=== PATIENT | female | born 2000 ===

== ENCOUNTER 2020-09-03 13:16 | Emergency (ER) | payer OTHER ==
[2020-09-03] MEDS ORDERED: Sodium Chloride 0.9% 10 ML Syringe FLUSH PRN (13:57)
[2020-09-03] MEDS ORDERED: LORazepam 2 MG/ML SDV IVPUSH ONE ×6 (13:58→18:55)
[2020-09-03] MEDS ORDERED: Sodium Chloride 0.9% 1,000 ML IV SCH (14:00)
[2020-09-03] MEDS ORDERED: Lactated Ringers 1,000 ML IV SCH (15:45)
[2020-09-03] MEDS ORDERED: Potassium Chloride 10 MEQ in Premix Bag 1 BAG IV ONE (15:52)
--- NOTE | 2020-09-03 15:57 | EDM.PDOC ---
ED HPI GENERAL MEDICAL PROBLEM - General Chief Complaint: General Stated Complaint: ALTERED STATUS Time Seen by Provider: 09/03/20 13:42 Source of Information: Reports: Patient, Family (), RN Notes Reviewed - History of Present Illness INITIAL COMMENTS - FREE TEXT/NARRATIVE: 19 yr old female brought here to the ED by her clinic provider for evaluation of altered mental status, balance difficulty and apparent hallucinations. Pt unable to state when these symptoms started. Her clinic provider states she was just prescribed phentermine about a week ago, wondering if this could be medication effect or possible seratonin syndrome. On arrival pt found to be tachycardic with a heart rate of 180 on arrival to ED. Denied chest pain, awareness of palpitations, dyspnea, abd pain, nausea or vom iting. Hx of depression on effexor 150 mg q hs. - Related Data Allergies Allergy/AdvReac Type Severity Reaction Status Date / Time phentermine Allergy Hallucinati Verified 09/03/20 17:42 ons Home Meds: Home Meds Phentermine HCl 15 mg PO DAILY 09/03/20 [History] Venlafaxine [Effexor XR] 150 mg PO BEDTIME 09/03/20 [History] Social & Family History - Tobacco Use Tobacco Use Status *Q: Never Tobacco User Second Hand Smoke Exposure: No - Caffeine Use Caffeine Use: Reports: Coffee, Soda - Recreational Drug Use Recreational Drug Use: No ED ROS GENERAL - Review of Systems Review Of Systems: See Below Constitutional: Denies: Fever, Chills, Diaphoresis HEENT: Denies: Throat Pain Respiratory: Denies: Shortness of Breath Cardiovascular: Denies: Chest Pain, Palpitations GI/Abdominal: Denies: Abdominal Pain, Nausea, Vomiting Musculoskeletal: Reports: Back Pain Skin: Denies: Rash Neurological: Reports: Confusion. Denies: Trouble Speaking Psychiatric: Reports: Confusion, Hallucinations ED EXAM, GENERAL - Physical Exam Exam: See Below General Appearance: Alert, Anxious, Moderate Distress Eye Exam: Bilateral Eye: PERRL (pupils mid size, equal, reactive) Nose: Normal Inspection Throat/Mouth: Normal Inspection, Normal Oropharynx Head: Atraumatic Neck: Supple. No: Lymphadenopathy (L), Lymphadenopathy (R) Respiratory/Chest: No Respiratory Distress, Lungs Clear, Normal Breath Sounds Cardiovascular: Tachycardia GI/Abdominal: Soft, Non-Tender Back Exam: No: CVA Tenderness (L), CVA Tenderness (R) Extremities: Normal Inspection. No: Pedal Edema, Leg Pain Neurological: Alert, No Motor/Sensory Deficits, Other (Knows it is August, thinks it is , knows her daughter's birthday) Skin Exam: Warm, Dry, Normal Color, No Rash #1 Interpretation EKG Date: 09/03/20 Rhythm: Other (Sinus tachycardia,) Fosters: LAD-Left Fosters Deviation P-Wave: Present QRS: Other (Mild IVCD) ST-T: Normal Course - Vital Signs Last Recorded V/S: Last Vital Signs Temp 98.6 F 09/03/20 18:51 Pulse 136 H 09/03/20 18:51 Resp 24 H 09/03/20 18:51 BP 143/95 H 09/03/20 18:51 Pulse Ox 98 09/03/20 18:51 - Orders/Labs/Meds Orders: Active Orders 24 hr Category Date Time Status Head wo Cont [CT] Stat Exams 09/03/20 16:28 Taken Peripheral IV Insertion Adult [OM.PC] Stat Oth 09/03/20 13:57 Ordered Labs: Laboratory Tests 09/03/20 09/03/20 09/03/20 Range/Units 13:39 13:40 13:40 WBC 9.39 (3.98-10.04) K/mm3 RBC 4.72 (3.98-5.22) M/mm3 Hgb 13.8 (11.2-15.7) gm/dl Hct 42.1 (34.1-44.9) % MCV 89.2 (79.4-94.8) fl MCH 29.2 (25.6-32.2) pg MCHC 32.8 (32.2-35.5) g/dl RDW Std Deviation 44.7 (36.4-46.3) fL Plt Count 324 D (182-369) K/mm3 MPV 8.9 L (9.4-12.3) fl Neut % (Auto) 34.8 (34.0-71.1) % Lymph % (Auto) 56.1 H (19.3-51.7) % [place] % (Auto) 7.5 (4.7-12.5) % Eos % (Auto) 1.0 (0.7-5.8) Baso % (Auto) 0.4 (0.1-1.2) % Neut # (Auto) 3.27 (1.56-6.13) K/mm3 Lymph # (Auto) 5.27 H (1.18-3.74) K/mm3 [place] # (Auto) 0.70 H (0.24-0.36) K/mm3 Eos # (Auto) 0.09 (0.04-0.36) K/mm3 Baso # (Auto) 0.04 (0.01-0.08) K/mm3 Sodium (136-145) mEq/L Potassium (3.5-5.1) mEq/L Chloride (98-107) mEq/L Carbon Dioxide (21-32) mEq/L Anion Gap (5-15) BUN (7-18) mg/dL Creatinine (0.55-1.02) mg/dL Est Cr Clr Drug Dosing mL/min Estimated GFR (MDRD) (>60) mL/min BUN/Creatinine Ratio (14-18) Glucose (70-99) mg/dL POC Glucose 72 (70-99) mg/dL Calcium (8.5-10.1) mg/dL Total Bilirubin (0.2-1.0) mg/dL AST (15-37) U/L ALT (14-59) U/L Alkaline Phosphatase (46-116) U/L Troponin I (0.00-0.056) ng/mL C-Reactive Protein 2.1 H* (<1.0) mg/dL Total Protein (6.4-8.2) g/dl Albumin (3.4-5.0) g/dl Globulin gm/dL Albumin/Globulin Ratio (1-2) TSH 3rd Generation (0.358-3.74) uIU/mL Urine Color (Yellow) Urine Appearance (Clear) Urine pH (5.0-8.0) Ur Specific [place] (1.005-1.030) Urine Protein (Negative) Urine Glucose (UA) (Negative) Urine Ketones (Negative) Urine Occult Blood (Negative) Urine Nitrite (Negative) Urine Bilirubin (Negative) Urine Urobilinogen (0.2-1.0) Ur Leukocyte Esterase (Negative) Urine RBC (0-5) /hpf Urine WBC (0-5) /hpf Ur Squamous Epith Cells (0-5) /hpf Amorphous Sediment (NOT SEEN) /hpf Urine Bacteria (FEW) /hpf Urine Mucus (FEW) /hpf Urine HCG, Qual (NEGATIVE) Urine Opiates Screen (UTJVTN=621) Ur Buprenorphine Scrn (CUTOFF=10) Ur Oxycodone Screen (WFW8CR=920) Urine Methadone Screen (HVGFFS=500) Ur Propoxyphene Screen (CQRPEI=927) Acetaminophen (10-30) ug/mL Ur Barbiturates Screen (ZGSKJF=297) Ur Tricyclics Screen (UASKCM=969) Ur Phencyclidine Scrn (CUTOFF=25) Ur Amphetamine Screen (OGHKDX=834) U Methamphetamines Scrn (PASCES=394) U Benzodiazepines Scrn (UCIMZN=321) U Cocaine Metab Screen (LGNPWQ=949) U Marijuana (THC) Screen (CUTOFF=50) Ethyl Alcohol (0.00) gm% SARS-CoV-2 RNA (JENNIFER) (NEGATIVE) 09/03/20 09/03/20 09/03/20 Range/Units 13:40 13:40 14:45 WBC (3.98-10.04) K/mm3 RBC (3.98-5.22) M/mm3 Hgb (11.2-15.7) gm/dl Hct (34.1-44.9) % MCV (79.4-94.8) fl MCH (25.6-32.2) pg MCHC (32.2-35.5) g/dl RDW Std Deviation (36.4-46.3) fL Plt Count (182-369) K/mm3 MPV (9.4-12.3) fl Neut % (Auto) (34.0-71.1) % Lymph % (Auto) (19.3-51.7) % [place] % (Auto) (4.7-12.5) % Eos % (Auto) (0.7-5.8) Baso % (Auto) (0.1-1.2) % Neut # (Auto) (1.56-6.13) K/mm3 Lymph # (Auto) (1.18-3.74) K/mm3 [place] # (Auto) (0.24-0.36) K/mm3 Eos # (Auto) (0.04-0.36) K/mm3 Baso # (Auto) (0.01-0.08) K/mm3 Sodium 140 (136-145) mEq/L Potassium 2.9 L (3.5-5.1) mEq/L Chloride 101 (98-107) mEq/L Carbon Dioxide 23 (21-32) mEq/L Anion Gap 18.9 H (5-15) BUN 13 (7-18) mg/dL Creatinine 0.9 (0.55-1.02) mg/dL Est Cr Clr Drug Dosing 71.02 mL/min Estimated GFR (MDRD) > 60 (>60) mL/min BUN/Creatinine Ratio 14.4 (14-18) Glucose 78 (70-99) mg/dL POC Glucose (70-99) mg/dL Calcium 9.8 (8.5-10.1) mg/dL Total Bilirubin 0.2 (0.2-1.0) mg/dL AST 24 (15-37) U/L ALT 32 (14-59) U/L Alkaline Phosphatase 93 (46-116) U/L Troponin I < 0.017 (0.00-0.056) ng/mL C-Reactive Protein (<1.0) mg/dL Total Protein 8.8 H (6.4-8.2) g/dl Albumin 4.4 (3.4-5.0) g/dl Globulin 4.4 gm/dL Albumin/Globulin Ratio 1.0 (1-2) TSH 3rd Generation 4.870 H (0.358-3.74) uIU/mL Urine Color (Yellow) Urine Appearance (Clear) Urine pH (5.0-8.0) Ur Specific [place] (1.005-1.030) Urine Protein (Negative) Urine Glucose (UA) (Negative) Urine Ketones (Negative) Urine Occult Blood (Negative) Urine Nitrite (Negative) Urine Bilirubin (Negative) Urine Urobilinogen (0.2-1.0) Ur Leukocyte Esterase (Negative) Urine RBC (0-5) /hpf Urine WBC (0-5) /hpf Ur Squamous Epith Cells (0-5) /hpf Amorphous Sediment (NOT SEEN) /hpf Urine Bacteria (FEW) /hpf Urine Mucus (FEW) /hpf Urine HCG, Qual (NEGATIVE) Urine Opiates Screen Negative (JGBDYN=611) Ur Buprenorphine Scrn Negative (CUTOFF=10) Ur Oxycodone Screen Negative (GID4BD=706) Urine Methadone Screen Negative (ACXQAI=418) Ur Propoxyphene Screen Negative (EPEMMW=007) Acetaminophen 0 L (10-30) ug/mL Ur Barbiturates Screen Negative (TDDUVO=907) Ur Tricyclics Screen Negative (VJPQLB=883) Ur Phencyclidine Scrn Negative (CUTOFF=25) Ur Amphetamine Screen Presumptive positive H (QHBWDV=799) U Methamphetamines Scrn Negative (GXGIIY=830) U Benzodiazepines Scrn Negative (FYCZCD=161) U Cocaine Metab Screen Negative (XOLKOI=313) U Marijuana (THC) Screen Negative (CUTOFF=50) Ethyl Alcohol 0.00 (0.00) gm% SARS-CoV-2 RNA (JENNIFER) (NEGATIVE) 09/03/20 09/03/20 09/03/20 Range/Units 14:45 15:30 16:15 WBC (3.98-10.04) K/mm3 RBC (3.98-5.22) M/mm3 Hgb (11.2-15.7) gm/dl Hct (34.1-44.9) % MCV (79.4-94.8) fl MCH (25.6-32.2) pg MCHC (32.2-35.5) g/dl RDW Std Deviation (36.4-46.3) fL Plt Count (182-369) K/mm3 MPV (9.4-12.3) fl Neut % (Auto) (34.0-71.1) % Lymph % (Auto) (19.3-51.7) % [place] % (Auto) (4.7-12.5) % Eos % (Auto) (0.7-5.8) Baso % (Auto) (0.1-1.2) % Neut # (Auto) (1.56-6.13) K/mm3 Lymph # (Auto) (1.18-3.74) K/mm3 [place] # (Auto) (0.24-0.36) K/mm3 Eos # (Auto) (0.04-0.36) K/mm3 Baso # (Auto) (0.01-0.08) K/mm3 Sodium (136-145) mEq/L Potassium (3.5-5.1) mEq/L Chloride (98-107) mEq/L Carbon Dioxide (21-32) mEq/L Anion Gap (5-15) BUN (7-18) mg/dL Creatinine (0.55-1.02) mg/dL Est Cr Clr Drug Dosing mL/min Estimated GFR (MDRD) (>60) mL/min BUN/Creatinine Ratio (14-18) Glucose (70-99) mg/dL POC Glucose (70-99) mg/dL Calcium (8.5-10.1) mg/dL Total Bilirubin (0.2-1.0) mg/dL AST (15-37) U/L ALT (14-59) U/L Alkaline Phosphatase (46-116) U/L Troponin I (0.00-0.056) ng/mL C-Reactive Protein (<1.0) mg/dL Total Protein (6.4-8.2) g/dl Albumin (3.4-5.0) g/dl Globulin gm/dL Albumin/Globulin Ratio (1-2) TSH 3rd Generation (0.358-3.74) uIU/mL Urine Color Yellow (Yellow) Urine Appearance Clear (Clear) Urine pH 6.5 (5.0-8.0) Ur Specific [place] 1.025 (1.005-1.030) Urine Protein 1+ H (Negative) Urine Glucose (UA) Negative (Negative) Urine Ketones Negative (Negative) Urine Occult Blood Trace-intact H (Negative) Urine Nitrite Negative (Negative) Urine Bilirubin Negative (Negative) Urine Urobilinogen 0.2 (0.2-1.0) Ur Leukocyte Esterase Negative (Negative) Urine RBC 0-5 (0-5) /hpf Urine WBC 0-5 (0-5) /hpf Ur Squamous Epith Cells 0-5 (0-5) /hpf Amorphous Sediment Few H (NOT SEEN) /hpf Urine Bacteria Few (FEW) /hpf Urine Mucus Moderate H (FEW) /hpf Urine HCG, Qual Negative (NEGATIVE) Urine Opiates Screen (VFDBJT=810) Ur Buprenorphine Scrn (CUTOFF=10) Ur Oxycodone Screen (HKJ9HM=466) Urine Methadone Screen (JHNLZB=884) Ur Propoxyphene Screen (PKISKZ=771) Acetaminophen (10-30) ug/mL Ur Barbiturates Screen (UYHSNH=791) Ur Tricyclics Screen (XPFPKV=092) Ur Phencyclidine Scrn (CUTOFF=25) Ur Amphetamine Screen (IZCOQS=821) U Methamphetamines Scrn (JGUZGV=796) U Benzodiazepines Scrn (VONLOF=627) U Cocaine Metab Screen (QFUJVZ=563) U Marijuana (THC) Screen (CUTOFF=50) Ethyl Alcohol (0.00) gm% SARS-CoV-2 RNA (JENNIFER) Negative (NEGATIVE) Meds: Medications Discontinued Medications Generic Name Dose Route Start Last Admin Trade Name Freq PRN Reason Stop Dose Admin Dextrose/Water 25 ml 09/03/20 16:43 09/03/20 17:08 50% Dextrose In Water 50 Ml Syringe IVPUSH 09/03/20 16:44 25 ml ONETIME ONE Administration Sodium Chloride 1,000 mls @ 999 mls/hr 09/03/20 14:00 09/03/20 14:09 Normal Saline IV 999 mls/hr ONETIME LUZ ELENA Administration Lactated Ringer's 1,000 mls @ 150 mls/hr 09/03/20 15:45 09/03/20 15:46 Ringers, Lactated IV 150 mls/hr ASDIRECTED LUZ ELENA Administration Potassium Chloride 10 meq/ 100 mls @ 50 mls/hr 09/03/20 15:52 09/03/20 16:04 Premix IV 09/03/20 17:51 50 mls/hr ASDIRECTED ONE Administration Dextrose/Lactated Ringer's 1,000 mls @ 150 mls/hr 09/03/20 17:45 09/03/20 17:43 Dextrose 5%-Lactated Ringers IV 150 mls/hr ASDIRECTED LUZ ELENA Administration Lorazepam 1 mg 09/03/20 13:58 09/03/20 14:07 Lorazepam 2 Mg/Ml Sdv IVPUSH 09/03/20 13:59 1 mg ONETIME ONE Administration Lorazepam 1 mg 09/03/20 14:30 09/03/20 14:36 Lorazepam 2 Mg/Ml Sdv IVPUSH 09/03/20 14:31 1 mg ONETIME ONE Administration Lorazepam 1 mg 09/03/20 15:09 09/03/20 15:14 Lorazepam 2 Mg/Ml Sdv IVPUSH 09/03/20 15:10 1 mg ONETIME ONE Administration Lorazepam 1 mg 09/03/20 15:40 09/03/20 15:46 Lorazepam 2 Mg/Ml Sdv IVPUSH 09/03/20 15:41 1 mg ONETIME ONE Administration Lorazepam 1 mg 09/03/20 17:38 09/03/20 17:43 Lorazepam 2 Mg/Ml Sdv IVPUSH 09/03/20 17:39 1 mg ONETIME ONE Administration Lorazepam 1 mg 09/03/20 18:55 09/03/20 18:59 Lorazepam 2 Mg/Ml Sdv IVPUSH 09/03/20 18:56 1 mg ONETIME ONE Administration Potassium Chloride 20 meq 09/03/20 15:56 09/03/20 16:12 Potassium Chloride 20 Meq Tab.Er PO 09/03/20 15:57 Not Given ONETIME ONE Sodium Chloride 10 ml 09/03/20 13:57 09/03/20 14:08 Sodium Chloride 0.9% 10 Ml Syringe FLUSH 10 ml ASDIRECTED PRN Administration Keep Vein Open - Re-Assessments/Exams Free Text/Narrative Re-Assessment/Exam: 09/03/20 16:05. Tachycardia has improved from 180 on arrival down to 140's with IV fluid, ativan 1 mg IV, 4 separate doses over the past 2 hrs. BP has also improved from 165/110 on arrival down 135/86. However her mental status has worsened in that she is more confused, can no longer tell me her daughter's name or birthday which she had no trouble with on ED arrival a couple of hrs ago. She seems to be having more severe hallucinations. She is looking about the room and picking at the air and her clothing. I have discussed this with our Hospitalist telephone assembler. He is somewhat reluctant to accept her as an admission wi th possibility of further complications such as hyperthermia or seizures that would make safe management at our facility more difficult. 16:45. Have discussed with Dr Ellie [facility] with their critical care provider listening in. He does accept patient in transfer. We will send her by ground ambulance. 17:00. Head CT normal. Repeat EKG- S tach, nl QRS, no st changes, QT interval OK. [facility] just left a short time ago for an OB transfer. They won't have a crew available until 6 PM. We did check with [facility], they have a BLS crew only. Boyfriend states that he talked to her about 11 AM today. At that time she had normal speech pattern, was completely coherent. Talked to him about a job interview she had had earlier today. She than showed up at the clinic with her 1 yr old daughter for a pediatric appointment after 1 PM with sx of balance difficulty, confusion, hallucinations. 09/03/20 17:10 Her boyfriend went home to check her medication bottles. Her Phentermine was prescribed 08/26/20. 30 tabs, 15 mg dosage to take once daily. There are 5 tabs missing so there is strong possibility that she has in someway taken more of the medication than how it was prescribed. 19:00. Ambulance is now here for transfer. Have given 2 further doses of ativan 1 mg IV over the past 2 hrs. Her mental status has improved in the last hour in that she now is able to answer some questions appropriately but for other questions she either doesn't say anything or speech otherwise inappropriate. The parts inspector is questioning why there is not a 24 hr hold in case she "gets combative or tries to jump out of the ambulance" I explained I have not seen a need for that. This is medication induced delerium, not psychosis or known suicide attempt. She has not been violent at any time in the 5 hrs she has been here, has been cooperative, there has been no need for physical restraint. Departure - Departure Time of Disposition: 19:15 Disposition: DC/Tfer to Acute Hospital 02 Clinical Impression: Drug toxicity, Tachycardia, Hallucinations Altered mental status Qualifiers: Altered mental status type: delirium Qualified Code(s): R41.0 - Disorientation, unspecified - Discharge Information Referrals: PCP,None [Primary Care Provider] - Forms: ED Department Discharge Sepsis Event Note (ED) - Evaluation Sepsis Screening Result: No Definite Risk - My Orders Last 24 Hours: My Active Orders 09/03/20 13:57 Peripheral IV Insertion Adult [OM.PC] Stat 09/03/20 16:28 Head wo Cont [CT] Stat - Assessment/Plan Last 24 Hours: My Active Orders 09/03/20 13:57 Peripheral IV Insertion Adult [OM.PC] Stat 09/03/20 16:28 Head wo Cont [CT] Stat
[2020-09-03] MEDS: Potassium Chloride 20 MEQ Tab.ER PO ONE ×2 (16:04→16:12)
[2020-09-03] MEDS ORDERED: 50% Dextrose in Water 50 ML Syringe IVPUSH ONE (16:43)
[2020-09-03] MEDS ORDERED: Dextrose 5%-Lactated Ringers 1,000 ML IV SCH (17:45)
--- NOTE | 2020-09-05 11:29 | CT ---
Head CT Technique: Multiple axial sections through the brain were obtained. Intravenous contrast was not utilized. Reconstructed coronal and sagittal images were obtained. Comparison: No prior intracranial imaging is available. Findings: Ventricles along with basal cisterns and sulci over the convexities appear within normal limits for the patient's age. No abnormal parenchymal densities are seen. No evidence of intracranial hemorrhage is seen. No midline shift or mass-effect is seen. Bone window settings were reviewed. The visualized mastoid sinuses and paranasal sinuses show nothing acute. No acute calvarial abnormality is appreciated. Impression: 1. Nothing acute is appreciated on noncontrast head CT study. Diagnostic code #1 I agree with preliminary report from [facility], finalized on 09/03/20, 6:28 PM CDT, code 1
== END 2020-09-03 19:37 ==
LOC: JD.ED 13:16
DX: R41.0 Disorientation, unspecified (principal); R00.0 Tachycardia, unspecified; R44.3 Hallucinations, unspecified; T50.905A Adverse effect of unspecified drugs, medicaments and biological substances, initial encounter; Z88.8 Allergy status to other drugs, medicaments and biological substances; Z20.822 Contact with and (suspected) exposure to COVID-19; Z79.899 Other long term (current) drug therapy
CPT/HCPCS: 36415; 70450; 80053; 80143; 80306; 80307; 81001; 81025; 82947; 84443; 84484; 85025; 86140; 87635; 93005; 96365; 96366; 96375; 96376; 99285; J2060; J3480; J7030; J7120; J7121; 93010; 99283; A9270-GY; U0002